=== PATIENT | male | born 2000 | race Caucasian/White ===

== ENCOUNTER 2023-01-23 06:41 | Outpatient (CLI) | payer OTHER ==
[~2023-01-23] VITALS: Ht 172.7 cm; Wt 118.8 kg
== END 2023-01-23 10:22 | disposition home or self-care (01) ==
LOC: PREOP 06:41
PROVIDERS: ATTEND Surgery
DX: Z01.818 Encounter for other preprocedural examination (principal)

== ENCOUNTER 2023-01-31 11:50 | Day surgery (SDC) | payer OTHER ==
[~2023-01-31] VITALS: Ht 172.7 cm; Wt 118.8 kg
[2023-01-31] MEDS ORDERED: LACTATED RINGERS 1,000 ML IV STA (11:58)
[2023-01-31 12:07] VITALS: BP 133/82
--- NOTE | 2023-01-31 12:21 | Progress Note-Pre Operative ---
Pre-Operative Progress Note Date H&P Reviewed: January 31, 2023 Time H&P Reviewed: 12:21 History & Physical: H&P Reviewed, Patient Examed, No changes noted Pre-Operative Diagnosis: rectal bleeding WILLAM HERRERA DO January 31, 2023 12:21
[2023-01-31] MEDS ORDERED: PROPOFOL INJECTION 50 ML IV ONE (13:02)
[2023-01-31] MEDS ORDERED: MIDAZOLAM 2 MG/2 ML (VERSED) VIAL ONE (13:02)
[2023-01-31 13:20] VITALS: BP 155/89
--- NOTE | 2023-01-31 13:20 | Discharge Inst-Simple/Standard ---
Discharge Inst-Standard Patient Instructions/Follow Up Plan of Care/Instructions/FU: Follow up on an as needed basis Activity as Tolerated: Yes Discharge Diet: Regular Diet WILLAM HERRERA DO January 31, 2023 13:20
--- NOTE | 2023-01-31 13:21 | Progress Note-Post Operative ---
Post-Operative Progess Note Surgeon (s)/Decontamination Worker (s) Surgeon WILLAM HERRERA DO Decontamination Worker: na Pre-Operative Diagnosis rectal bleeding Post-Operative Diagnosis normal colon Procedure & Operative Findings Date of Procedure 01/31/23 Procedure Performed/Findings colonoscopy Anesthesia Type per MRI MANAGER Estimated Blood Loss Estimated blood loss (mL): none Specimens/Packing Specimens Removed none WILLAM HERRERA DO January 31, 2023 13:21
[2023-01-31 13:25] VITALS: BP 128/78
[2023-01-31 13:30] VITALS: BP 132/79
--- NOTE | 2023-01-31 13:38 | Anesthesia-General Post-Op ---
MAC Patient Condition Mental Status/LOC: Same as Preop Cardiovascular: Satisfactory Nausea/Vomiting: Absent Respiratory: Satisfactory Pain: Controlled Complications: Absent Post Op Complications Complications None Follow Up Care/Instructions Patient Instructions None needed. Anesthesiology Discharge Order Discharge Order Patient is doing well, no complaints, stable vital signs, no apparent adverse anesthesia problems. No complications reported per nursing. SARAH BOSS CRNA January 31, 2023 13:38
[2023-01-31 13:40] VITALS: BP 132/79
--- NOTE | 2023-01-31 16:30 | OPERATIVE REPORT ---
DATE OF SERVICE: 01/31/2023 PREOPERATIVE DIAGNOSIS: Rectal bleeding. POSTOPERATIVE DIAGNOSIS: Normal colon. PROCEDURE: Colonoscopy. SURGEON: Willam Nassar DO ANESTHESIA: Per FILTERATION OPERATOR. ESTIMATED BLOOD LOSS: None. COMPLICATIONS: None. INDICATIONS: The patient is a 22-year-old male who had been having some rectal bleeding. He understands risks and benefits of the procedure for further evaluation. Consent was signed in chart. DESCRIPTION OF PROCEDURE: The patient was taken to endoscopy suite, placed in left lateral recumbent position. Timeout was performed. Digital rectal exam was performed. No palpable polyps, masses or ulcerations. Scope was inserted in the rectum, advanced all the way to the cecum with minimal difficulty. Prep was adequate. Scope was slowly retracted back. No polyps, masses or ulcerations in the cecum, ascending, transverse, descending, sigmoid colon. Once in the rectum, scope was retroflexed noting no other pathology. Scope was returned to its normal position, slowly withdrawn until completely removed. The patient tolerated the procedure well without any complications, taken to recovery room in stable condition. RECOMMENDATIONS: The patient will need repeat colonoscopy on that per screening guidelines, which would be starting at age 45. Any issues before that, be seen at that time. He will follow up on an as needed basis. Job ID: [id number] DocumentID: [id number] Dictated Date: 01/31/2023 13:21:04 Continuous Improvement Manager Date: 01/31/2023 16:29:00 Dictated By: WILLAM NASSAR DO
== END 2023-01-31 13:50 | disposition home or self-care (01) ==
LOC: ENDO 11:50
PROVIDERS: ATTEND Surgery
DX: K62.5 Hemorrhage of anus and rectum (principal); Z87.891 Personal history of nicotine dependence